=== PATIENT | female | born 1970 | race Caucasian/White ===

== ENCOUNTER 2021-08-31 04:20 | Day surgery (SDC) | payer OTHER ==
[2021-08-27 11:15] VITALS: BMI 23.3
[2021-08-31] MEDS ORDERED: MIDAZOLAM HCL 2 MG/2 ML SINGLE DOSE VIAL ONE (07:31)
[2021-08-31] MEDS ORDERED: PROPOFOL 20 ML ONE ×2 (07:32)
[2021-08-31] MEDS ORDERED: SUCCINYLCHOLINE CHLORIDE 200 MG/10 ML SYRINGE ONE (07:32)
[2021-08-31] MEDS ORDERED: IBUPROFEN 600 MG TABLET (FP) PO PRN (07:45)
[2021-08-31] MEDS ORDERED: IBUPROFEN 800 MG/8 ML IJ IVPB PRN (07:45)
[2021-08-31] MEDS ORDERED: ELECTROLYTE-148 SOLN 1,000 ML IV SCH (07:45)
[2021-08-31] MEDS ORDERED: ONDANSETRON 4 MG/2 ML VIAL IVPUSH PRN (07:45)
[2021-08-31] MEDS ORDERED: oxyCODONE HCL 5 MG TABLET PO PRN (07:45)
[2021-08-31] MEDS ORDERED: ePHEDrine SULFATE 50 MG/1 ML AMPULE ONE (07:54)
[2021-08-31] MEDS ORDERED: LACTATED RINGERS SOLUTION 1,000 ML IV SCH (09:00)
[2021-08-31 10:27] VITALS: TEMP 97.8
[2021-08-31 10:45] VITALS: BP 102/66; PULSE 68
== END 2021-08-31 10:45 | disposition home or self-care (01) ==
LOC: JASU-SURG 04:20
PROVIDERS: ATTEND Obstetrics & Gynecology
PROC: 0UDB7ZZ Extraction of Endometrium, Via Natural or Artificial Opening (ICD-10-PCS; 2021-08-31)
PROC: 0UB98ZX Excision of Uterus, Via Natural or Artificial Opening Endoscopic, Diagnostic (ICD-10-PCS; principal; 2021-08-31 07:30)
DX: N92.4 Excessive bleeding in the premenopausal period (principal); N84.0 Polyp of corpus uteri
CPT/HCPCS: 81025; 94760